=== PATIENT | male | born 1960 | race Caucasian/White ===

== ENCOUNTER → 2017-12-13 03:26 | Outpatient (CLI) | payer OTHER, SELFPAY ==
[2017-12-13 13:08] LABS: Hemoglobin A1C 10.1 % (4.5-6.2)
[2017-12-13 13:22] LABS: TSH (W/Ref FT4) 2.76 uIU/mL (0.358-3.74)
== END ==
PROVIDERS: PCP Family Medicine; Visit Provider Family Medicine
DX: R79.89 Other specified abnormal findings of blood chemistry (principal); E11.65 Type 2 diabetes mellitus with hyperglycemia
CPT/HCPCS: 36415; 83036; 84443

== ENCOUNTER 2018-03-14 02:12 | Outpatient (CLI) | payer OTHER, SELFPAY ==
[2018-03-14 13:42] LABS: Hemoglobin A1C 8.8 % (4.5-6.2)
== END 2018-03-14 02:32 ==
PROVIDERS: PCP Family Medicine; Visit Provider Family Medicine
DX: E11.65 Type 2 diabetes mellitus with hyperglycemia (principal)
CPT/HCPCS: 36415; 83036

== ENCOUNTER 2018-06-02 01:13 | Outpatient (CLI) | payer OTHER, SELFPAY | END 2018-06-02 01:33 | PROVIDERS: PCP Family Medicine; Visit Provider Family Medicine | DX: E11.65 Type 2 diabetes mellitus with hyperglycemia (principal) | CPT/HCPCS: 36415; 83036 ==

== ENCOUNTER 2018-12-01 04:17 | Outpatient (CLI) | payer OTHER, SELFPAY ==
[2018-12-01 13:55] LABS: Hemoglobin A1C 8.1 % (4.5-6.2)
[2018-12-01 14:25] LABS: COMMENT (LAB VIEW ONLY) 57.14 mg/dL; Microalb ug/mg Crea 13.5 ug/mg Cr
== END 2018-12-01 04:37 ==
PROVIDERS: PCP Family Medicine; Visit Provider Family Medicine
DX: E11.65 Type 2 diabetes mellitus with hyperglycemia; E11.9 Type 2 diabetes mellitus without complications
CPT/HCPCS: 36415; 82043; 82570; 83036

== ENCOUNTER 2020-06-03 11:25 | Outpatient (REF) | payer OTHER, SELFPAY ==
[2020-06-03 22:04] LABS: COMMENT (LAB VIEW ONLY) 96.14 mg/dL; Microalb ug/mg Crea 19.2 ug/mg Cr
[2020-06-03 22:29] LABS: CREATININE 1.09 mg/dL (0.70-1.30); Potassium 3.7 mmol/L (3.5-5.1); TSH (W/Ref FT4) 2.48 uIU/mL (0.36-3.74)
== END 2020-06-03 11:45 ==
LOC: LBN 11:25
PROVIDERS: PCP Family Medicine; Visit Provider Family Medicine
DX: E11.9 Type 2 diabetes mellitus without complications (principal); I10 Essential (primary) hypertension; E03.9 Hypothyroidism, unspecified
CPT/HCPCS: 82043; 82565; 82570; 84132; 84443

== ENCOUNTER 2021-05-09 11:44 | Emergency (ER) | payer OTHER, SELFPAY ==
[2021-05-09 11:51] VITALS: BP 141/74; PULSE 89; RESP 16; TEMP 36.8; O2SAT 99
--- NOTE | 2021-05-09 12:15 | ED.GENADUL_ITS ---
Discharge Plan Disposition Patient Disposition: HOME Condition: Stable Discharge Details Clinical Impression: Encounter for laboratory testing for COVID-19 virus Primary Care Provider: Jean-Claude Jaeger ED Provider: Mary Cochran Home Meds and New Rx's Prescriptions: Continued (DME) Blood Glucose Test strip 1 ea Miscellaneous DAILY Qty: 100 RF: 3 losartan 25 mg tablet 25 mg PO DAILY Qty: 90 RF: 3 (DME) blood-glucose meter 1 EACH misc 1 ea Miscellaneous ONCE Qty: 1 RF: 0 (DME) lancets 1 EACH misc 1 ea Miscellaneous DAILY Qty: 100 RF: 4 albuterol sulfate 8.5 GM HFA aerosol inhaler 1 - 2 puff Inhalation Q4H PRN Qty: 1 RF: 0 aspirin 81 MG tablet,chewable 81 mg PO DAILY Qty: 90 RF: 3 Farxiga 10 mg tablet 10 mg PO DAILY Qty: 90 RF: 3 atorvastatin 10 mg tablet 10 mg PO QPM Qty: 90 RF: 3 levothyroxine 100 mcg tablet 100 mcg PO DAILY Qty: 90 RF: 3 (DME) pen needle, diabetic [BD Ultra-Fine Delaney Pen Needle] 32 gauge x 5/32 needle 1 ea Miscellaneous DAILY Qty: 100 RF: 3 Lantus Solostar U-100 Insulin 100 unit/mL (3 mL) insulin pen 60 unit Sub-Q .PM Qty: 36 RF: 3 Discharge Instructions Instructions: COVID-19: Slow the Coronavirus Spread (ED) Additional Instructions: Please continue to quarantine until negative result. Please take vitamins including vitamin C, vitamin D and zinc. Consider getting vaccinated for Covid Follow up with primary care provider in 3-5 days. Return to ED sooner if any worsening or concerns. Increase oral fluids. Please take Tylenol or Ibuprofen with food every 4-6 hours as needed for pain and swelling. Stand Alone Forms: PENDING COVID-19 TESTING, Work Release Discharge Data Discharge Date/Time-TO BE ENTERED AT DEPARTURE: 05/09/21 12:33 Medical Decision Making Send out Covid test obtained by nursing staff. Discussed quarantine procedures and home care with patient who verbalizes understanding. HPI General Mode of arrival: ambulatory . Date/Time Provider Initiated Documentation: 05/09/21 11:51 . Limitations to Documentation: no limitations . Information obtained by: patient and RN notes reviewed . HPI Narrative: Is a 60-year-old male presents to the ER chief complaint of headache, sinus congestion and request for Covid testing. He denies any fever. He does report that he was exposed to 70 on who tested positive for Covid. He has a past medical history of diabetes, GERD, hypothyroidism, hyperlipidemia, depression. Related Data Home Medications Medication Instructions Recorded Confirmed blood-glucose meter #1 ea 07/23/13 01/07/21 lancets #100 ea 07/23/13 01/07/21 albuterol sulfate 1 - 2 puff INHALATION Q4H PRN #1 06/25/14 05/09/21 inhaler aspirin 81 mg PO DAILY #90 tab-cap 06/15/17 05/09/21 blood sugar diagnostic #100 strip 06/06/18 01/07/21 dapagliflozin 10 mg tablet 10 mg PO DAILY #90 tab 05/30/20 05/09/21 losartan 25 mg tablet 25 mg PO DAILY #90 tab 06/03/20 05/09/21 atorvastatin 10 mg tablet 10 mg PO QPM #90 tab 08/20/20 05/09/21 levothyroxine 100 mcg tablet 100 mcg PO DAILY #90 tab-cap 08/20/20 05/09/21 pen needle, diabetic 32 gauge x #100 ea 09/18/20 01/07/21 insulin glargine 100 unit/mL (3 60 unit SUB-Q .PM #36 ml 03/10/21 05/09/21 mL) subcutaneous pen Previous Rx's Medication Instructions Recorded aspirin 81 mg PO DAILY #90 tab-cap 06/15/17 blood sugar diagnostic #100 strip 06/06/18 dapagliflozin 10 mg tablet 10 mg PO DAILY #90 tab 05/30/20 losartan 25 mg tablet 25 mg PO DAILY #90 tab 06/03/20 atorvastatin 10 mg tablet 10 mg PO QPM #90 tab 08/20/20 levothyroxine 100 mcg tablet 100 mcg PO DAILY #90 tab-cap 08/20/20 pen needle, diabetic 32 gauge x #100 ea 09/18/20 insulin glargine 100 unit/mL (3 60 unit SUB-Q .PM #36 ml 03/10/21 mL) subcutaneous pen Allergies Allergy/AdvReac Type Severity Reaction Status Date / Time metformin AdvReac Severe Diarrhea, Verified 05/09/21 11:55 Nausea glipizide AdvReac Unknown Nausea Verified 05/09/21 11:55 lisinopril AdvReac Unknown Verified 05/09/21 11:55 semaglutide [From Rybelsus] AdvReac resp issues Verified 05/09/21 11:55 General Stated Complaint: RespSymp JOHNNY: 3 Review of Systems All systems reviewed & are unremarkable except as noted in HPI and below PFSH All Active Problems (Updated 05/09/21 @ 12:20 by Mary Cochran) Encounter for laboratory testing for COVID-19 virus (Acute) Skin tag (Acute) Sinus congestion (Acute) GERD (gastroesophageal reflux disease) (Chronic) Neuropathy (Acute) likely 2ndary to suboptimal control of DM Diabetes mellitus (Chronic) Status post tonsillectomy (Acute) Well adult (Acute) Tobacco use disorder (Acute) 35 pack years Polyp of colon (Acute) 07/20/13; DR. Rafael BEAR; SESSILE SERRATED ADENOMA Non-alcoholic fatty liver disease (Acute 04/07/05) bx-12/2007 Lumbago (Acute) Hypothyroidism (Acute 10/24/13) Hyperlipidemia (Acute 04/07/05) Gout (Acute) Depressive disorder (Acute) DM w/o complication type II, uncontrolled (Acute 10/30/14) improved sugars (A1c reviewed--8.8) Surgical History Tonsillectomy (~1973) Varicocele Ligation (~1975) LEFT TESTICLE Family History Mother Lung cancer Father Diabetes Alcohol abuse Hyperlipidemia Maternal Grandmother Cancer Son No problems noted. Social History Smoking/Tobacco Use Status: Former Tobacco Use Quit Date: 05/09/14 Tobacco: How many years used: 45 Quit status: has quit before Second Hand Exposure: No Smoking risk assessment performed?: Yes Alcohol Intake: current Alcohol Intake frequency: holidays/special occasions only Alcohol type: hard liquor Drug use: Never Substance use type: does not use Caregiver/Support person: No Household members: spouse Housing: house Communication Needs: None Pets and animals: No Sexually active: Yes Do you think of yourself as: straight/heterosexual Current gender identity: male What is your relationship status?: How often do you get together with friends or relatives?: never How often do you attend adventism or confucianist services?: decline to answer Do you belong to any clubs or organized social groups?: no Panel score (0-1 are the most socially isolated patients): 1 What type of physical activity do you participate in: walking Duration: 15-30 minutes/day Frequency: 3-4 times per week Alla/Restorationism: Roman Catholic Special alla needs: No Seatbelt use: always Helmet use: No Drive intox or ride w/intox local truck driver: No Do you feel safe in your relationship?: Yes Exam Narrative Exam Narrative: Constitutional: Alert and oriented x3. Appears stated age. Normal body habitus. Head: Normocephalic, no trauma. Eyes: Pupils PERRL, Red reflex noted, EOM's intact. Eyelids symmetrical without lesions, discharge, or swelling. ENT: Bilateral TM's WNL, External ear normal to inspection, no mastoid TTP, swelling, or erythema, Nasal turbinates WNL, no nasal discharge. Normal dentition, Posterior pharynx WNL, no exudate. Chest: RRR, Normal S1, S2, distal pulses intact. Resp: Lungs clear to auscultation bilaterally, no wheezes, rales, or rhonchi. Abdomen: Soft, non-distended, Normoactive bowel sounds all 4 quads. Musculoskeletal: Normal gait, 5/5 strength to all four extremities. Skin: No suspicious rashes or lesions. Capillary refill less than 2 sec. Neurologic: Cranial nerves II-XII intact. Alert and oriented x 3. Motor: No deficits noted. Sensory: Intact bilaterally all 4 extremities. Reflexes: DTR's intact bilaterally.. Hematologic/Lymphatic: No ecchymosis, no lymphadenopathy. Course Vital Signs Vital signs: Vital Signs Temperature 36.8 C 05/09/21 11:51 Pulse 89 05/09/21 11:51 Respiratory Rate 16 05/09/21 11:51 Blood Pressure 141/74 H 05/09/21 11:51 Pulse Oximetry 99 05/09/21 11:51 Temperature 36.8 C 05/09/21 11:51 Pulse 89 05/09/21 11:51 Respiratory Rate 16 05/09/21 11:51 Blood Pressure 141/74 H 05/09/21 11:51 Blood Pressure Position Sitting 05/09/21 11:51 Pulse Oximetry 99 05/09/21 11:51 Oxygen Delivery Method Room Air 05/09/21 11:51 Oxygen Flow Rate 0 05/09/21 11:51
[2021-05-09 12:28] VITALS: BP 141/74; PULSE 89; RESP 16; TEMP 36.8; O2SAT 99
[2021-05-11 09:56] LABS: COVID-19 RT-PCR UVMMC Result Negative (Negative)
== END 2021-05-09 12:33 | disposition home or self-care (01) ==
LOC: ER 12:52
PROVIDERS: Emergency Provider Registered Nurse Emergency; PCP Family Medicine
DX: R51.9 Headache, unspecified (principal); R09.81 Nasal congestion; Z20.822 Contact with and (suspected) exposure to COVID-19
CPT/HCPCS: 99281; U0003; 99282

== ENCOUNTER 2021-06-22 01:47 | Outpatient (CLI) | payer OTHER, SELFPAY ==
[2021-06-22 14:47] LABS: CREATININE 0.9 mg/dL (0.70-1.30); Potassium 4.3 mmol/L (3.5-5.1)
== END 2021-06-22 01:48 | disposition home or self-care (01) ==
LOC: LBO 01:47
PROVIDERS: PCP Family Medicine; Visit Provider Family Medicine
DX: I10 Essential (primary) hypertension (principal); R73.09 Other abnormal glucose
CPT/HCPCS: 36415; 82565; 83036; 84132

== ENCOUNTER 2021-09-04 06:11 | Day surgery (SDC) | payer OTHER, SELFPAY ==
--- NOTE | 2021-09-03 12:54 | COLE_ITS ---
Colonoscopy Report Date of procedure: 09/04/21 Pre-op diagnosis general: S. serrated at hepatic flexure in 2012 Post-op diagnosis procedure note: other (fissure [id number]) Surgeon: Yoana Nina Anesthesia Type: General:No Airway Estimated blood loss (mL): 1 Pathology: other Complications: None Disposition: same day Prep: Miralax/Dulcolax Retraction Time: 12 Procedure Description: After informed consent was obtained the patient was taken to the procedure room and placed in a left decubitous position. Monitors were applied and a time out was done. The patients name, date of , procedure, allergies to medications and metal in their body was reviewed. The patient was then sedated. Once sedated and comfortable a rectal exam was done. External exam was normal. Internal exam revealed a normal sphincter tone and no palpable masses. He does have a rectal fissure in the 6 o'clock position. This appears chronic. It does have an associated sentinel pile. The scope was then introduced and retrofelexed. Three column Grade I internal hemorrhoids were identified. The scope was then advanced to the cecum w/out difficulty. The TI and appendiceal orifice were identified. The prep was be BPS 2 in the right colon and be BPS 3 in the other segments for a total of 8. The scope was then slowly retracted over 12 minutes back into the rectum. He had a 0.75 cm polyp removed at 60 cm with a cold biting forcep. He had 0.5 cm flat polyp at 70 and 20 cm. These are both removed with a cold forcep. All specimen is retrieved and no bleeding is noted. All 3 of these polyps were examined under NBI they do appear to be adenomatous and possibly serrated. Ther e are no diverticula noted. The mucosa is pink and healthy with a normal vascular pattern. The scope was removed and the patient was woken up and taken back to Same day surgery in stable condition. The patient tolerated the procedure well and there were no immediate complications. Follow up: The patient should follow up in 3-5 years unless they develop changes in bowel habits or other new gastrointestinal complaints.
--- NOTE | 2021-09-03 12:56 | PDOC.DSDIS_ITS ---
Discharge Plan Disposition Patient Disposition: HOME Condition: Good Discharge Details Reason For Visit: colon scope Attending Provider: Yoana Nina Primary Care Provider: Jean-Claude Jaeger Home Meds and New Rx's Prescriptions: Continued (DME) Blood Glucose Test strip 1 ea Miscellaneous DAILY Qty: 100 3RF Rx Instructions: Lantus for insulin. DX e11.9 test once/day (DME) blood-glucose meter 1 EACH misc 1 ea Miscellaneous ONCE Qty: 1 0RF Rx Instructions: METER TYPE ONE TOUCH ULTRA MINI DIAGNOSIS CODE 250.02 (DME) lancets 1 EACH misc 1 ea Miscellaneous DAILY Qty: 100 4RF Rx Instructions: FOR ONE TOUCH ULTRA MINI METER. NO INSULIN. DIAGNOSIS CODE 250.02 levothyroxine 100 mcg tablet 100 mcg PO DAILY Qty: 90 3RF (DME) pen needle, diabetic [BD Ultra-Fine Delaney Pen Needle] 32 gauge x 5/32 needle 1 ea Miscellaneous DAILY Qty: 100 3RF Rx Instructions: DX E11.9 inject once/day Lantus Solostar U-100 Insulin 100 unit/mL (3 mL) insulin pen 60 unit Sub-Q .PM Qty: 36 3RF Rx Instructions: DX E11.65 losartan 25 mg tablet 25 mg PO DAILY Qty: 90 3RF Farxiga 10 mg tablet 10 mg PO DAILY Qty: 90 3RF atorvastatin 10 mg tablet 10 mg PO QPM Qty: 90 3RF Discontinued bisacodyl [Dulcolax (bisacodyl)] 5 mg tablet,delayed release (DR/EC) 5 mg PO ONCE Qty: 4 0RF Rx Instructions: Take according to provider's instructions for colonoscopy prep. polyethylene glycol 3350 17 gram/dose powder 17 g PO ONCE Qty: 238 0RF Rx Instructions: To be taken as directed by prescriber's office for colonoscopy prep. Discharge Instructions Additional Instructions: DSU Colonoscopy Post- Op Instructions Instructions for Everyone who is given Anesthesia: For your safety, please do the following for the next twenty-four (24) hours: *Do Not operate a motor vehicle (car, truck, motorcycle, etc.) *Do Not drink alcoholic beverages or use any recreational drugs for the first 24 hours or while taking pain medications. The medications in your body may have a reaction that can be dangerous. *Do Not make any important decisions or sign any important papers. Findings:polypsX3 Follow up: My office will send you a letter in 2 to 3 weeks time detailing what types of polyps they were and when we want you to repeat the colonoscopy. 1. No lifting over 20 pounds or strenuous activity for the first 24 hours after your procedure. After 24 hours there are no restrictions on your activity but you may feel fatigued for a few days. 2. After you arrive home you may have a light meal and return to your normal diet as you can tolerate it without feeling sick to your stomach. 3. You may have a bloated, gaseous feeling in your belly (abdomen) after a colonoscopy. Passing gas and belching will help. Walking or lying down on your left side with your knees flexed may relieve the discomfort. -No ASA/NSAID's x72 hrs tylenol is OK. Call the office at [phone] (Office) or [phone] (Hospital) right away if you notice any of the following: a.Vomiting of blood or ?coffee ground stools?. b.Rectal bleeding 1Tbsp, blood clots or continuous bleeding. c.Severe belly (abdominal) pain. d.A hard distended belly (abdomen) and an inability to pass gas. 4. Please don?t expect to have a normal BM (bowel movement) for 2-3 days after your procedure. 5. If there are questions regarding the findings of your procedure, please contact your doctor 6. If you are unable to contact your doctor with a problem, contact the hospital at [phone]. 7. Continue all your regular medications unless directed otherwise. I understand the above instructions and have no questions. Signature of Patient or Adult Escort Name of Responsible Adult Escort Signature of Nurse Date/Time Activity:: See above Diet:: See above Discharge Orders Discharge Orders: Discharge Order (Routine); Ordered 09/03/21 Ordered By: Yoana Nina
[2021-09-04 06:29] VITALS: BP 135/72; PULSE 74; RESP 17; TEMP 36.3; O2SAT 99
[2021-09-04] MEDS: Lactated Ringers 1,000 ML 80 ML IV (06:41)
--- NOTE | 2021-09-04 06:58 | ANES.PREOP_ITS ---
General Info Date of Service Date Performed: 09/04/21 Height: 5 ft 9 in Weight: 77.4 kg Body Mass Index (BMI): 25.2 Surgical Procedure: Operation Date: 09/04/21 07:35 Proposed Procedure Side Surgeon humberto Nina, DO Meds Allergies and Home Medications Allergies Allergy/AdvReac Type Severity Reaction Status Date / Time metformin AdvReac Severe Diarrhea, Verified 09/04/21 06:29 Nausea glipizide AdvReac Unknown Nausea Verified 09/04/21 06:29 lisinopril AdvReac Unknown Verified 09/04/21 06:29 semaglutide [From Rybelsus] AdvReac resp issues Verified 09/04/21 06:29 Home Medication Medication Instructions Recorded blood-glucose meter #1 ea 07/23/13 lancets 28 gauge #100 ea 07/23/13 blood sugar diagnostic (Blood #100 strip 06/06/18 Glucose Test) levothyroxine 100 mcg tablet 100 mcg PO DAILY #90 tab-cap 08/20/20 pen needle, diabetic 32 gauge x #100 ea 09/18/20 (BD Ultra-Fine Delaney Pen Needle) insulin glargine 100 unit/mL (3 60 unit (0.6 mL) SUB-Q .PM #36 ml 03/10/21 mL) subcutaneous pen (Lantus Solostar U-100 Insulin) losartan 25 mg tablet 25 mg PO DAILY #90 tab 07/14/21 atorvastatin 10 mg tablet 10 mg PO QPM #90 tab 08/24/21 dapagliflozin 10 mg tablet 10 mg PO DAILY #90 tab 08/24/21 (Farximo) Current Visit Medications: Current Medications Generic Name Dose Route Start Last Admin Trade Name Freq PRN Reason Stop Dose Admin Hyoscyamine Sulfate 0.125 mg 09/04/21 06:00 Hyoscyamine 0.125 Mg Sl/Oral/Chew SL 09/04/21 16:00 DIRECTED PRN Ringer's Solution 1,000 mls @ 80 mls/hr 09/04/21 06:00 09/04/21 06:41 IV 09/05/21 23:59 80 mls/hr INFUSION JU Administration IV Miscellaneous Supplies 1 each 09/04/21 06:00 Iv Access IV 09/05/21 23:59 DIRECTED JU Ondansetron HCl 4 mg 09/04/21 06:00 Ondansetron 4 Mg/2 Ml Vial IVP 09/04/21 16:00 Q4H PRN PRN Nausea / Vomiting Sodium Chloride 0 ml 09/04/21 06:00 Normal Saline Flush 10 Ml Syr IV 09/05/21 23:59 PRN PRN Sodium Chloride 0 ml 09/04/21 06:00 Normal Saline 10 Ml Vial IJ 09/05/21 23:59 DIRECTED PRN Sterile Water 0 ml 09/04/21 06:00 Water,Injection,Sterile 10 Ml Vial IJ 09/05/21 23:59 DIRECTED PRN PFSH Active Problems Active Problems: Problem Status Onset Code Screening for colon cancer Z12.11 Diabetes mellitus E11.9 Neuropathy G62.9 GERD (gastroesophageal reflux disease) K21.9 Polyp of colon K63.5 Medical History Medical History Depressive disorder DM w/o complication type II, uncontrolled (10/30/14) improved sugars (A1c reviewed--8.8) Encounter for laboratory testing for COVID-19 virus Gout Hyperlipidemia (04/07/05) Hypothyroidism (10/24/13) Lumbago Non-alcoholic fatty liver disease (04/07/05) bx-12/2007 Sinusitis Skin tag Tobacco use disorder 35 pack years Well adult Surgical History Surgical History Status post tonsillectomy Tonsillectomy (~1973) Varicocele Ligation (~1975) LEFT TESTICLE Tobacco Smoking/Tobacco Use Status: Former Tobacco Use Passive smoking exposure: No Second hand exposure: No Alcohol Alcohol Intake: current Alcohol intake frequency: holidays/special occasions only Alcohol type: hard liquor Substance Use Substance use: Never Substance use type: does not use Vital Signs and Lab Results Vital Signs Most Recent Vital Signs in EMR: Most Recent Vital Signs Temp Pulse Resp BP Pulse Ox 36.3 C L 74 17 135/72 99 09/04/21 06:29 09/04/21 06:29 09/04/21 06:29 09/04/21 06:29 09/04/21 06:29 Point of Care Results Point of Care Results: Finger Stick Blood Glucose 143 09/04/21 06:20 Lab Results Blood Type / Crossmatch: No Data to Display Complete Blood Count: No Data to Display Complete Metabolic Panel: No Data to Display Liver Function Panel: No Data to Display Coagulation Panel: No Data to Display Cardiac Panel: No Data to Display Arterial Blood Gas: 2 No Data to Display Venous Blood Gas: No Data to Display Pancreas Panel: No Data to Display Thyroid Panel: No Data to Display Infectious Disease: No Data to Display Blood Cultures: No Data to Display Toxicology Panel: No Data to Display Anesthesia Assessment and Plan Anesthesia History Personal History: No History of Anesthesia Complications Family History: No Family History of Anesthesia Complications Exercise Tolerance Exercise Tolerance: Metabolic Equivalents>4 Pertinent Negatives Pertinent Negatives: No Symptoms of GERD (Well controlled w med) Cardiac & Pulmonary Exam Cardiac Exam: Normal S1/S2 Heart Sounds Pulmonary Exam: Clear Bilateral Breath Sounds Implantable Cardiac Device Does patient have a Pacemaker or an ICD?: No Airway Exam Known Difficult Airway: No Mallampati Class: 3 Mouth Opening: Normal (> 3cm) Thyromental Distance: Greater than 3 cm Neck Range of Motion: Full ROM Neck Circumference: Normal Teeth Condition: Normal Dentition ASA Classification ASA Score: ASA 2 Emergency Case?: No NPO Status NPO Status: NPO Clears >2 hours, Solids >8 hours Anesthesia Plan Resuscitation Status: Full Code Anesthesia Technique: General Anesthesia Airway Planned: Natural Airway Monitors Used: Standard Monitors
[2021-09-04 07:08] VITALS: BMI 25.2
--- NOTE | 2021-09-04 07:47 | BOWEL_PTH ---
PATIENT: Brett Reid JR LOC: [facility] U#:[id number] AGE/SX: 60/M ROOM: RE09/04/[address]: Yoana Nina : 1960 BED: DIS: 09/04/2021 SPEC #: [id number] RECD: 09/04/21 12:39 STATUS: MAURICIO REQ #: [id number] SAWYER: 09/04/21 07:[address]: Yoana Nina DEPT: Surgical Specimen RECD BY: Jess Cohn ENTERED: 09/04/21 12:40 SP TYPE: Bowel OTHR DR: Jean-Claude Jaeger MD Tissues: 1 - BIOPSY BOWEL 2 - BIOPSY BOWEL 3 - BIOPSY BOWEL Procedures: GROSS AND MICRO LEVEL 4 Comments: [id number]
[2021-09-04 08:21] VITALS: BP 119/74; PULSE 74; RESP 16; TEMP 36.6; O2SAT 98
--- NOTE | 2021-09-04 08:26 | W.ANESPOSTOP ---
Postoperative Evaluation Date, Time and Location Date Performed: 09/04/21 Time Performed: 08:27 Patient Location: Day Surgery Unit Vital Signs Most Recent Imported Vital Signs: Most Recent Vital Signs Temp Pulse Resp BP Pulse Ox 36.6 C 74 16 119/74 98 09/04/21 08:21 09/04/21 08:21 09/04/21 08:21 09/04/21 08:21 09/04/21 08:21 Pain Score Most Recent Pain Score: Most Recent Pain Score Pain Level 0 09/04/21 08:21 Assessment Mental Status: Arousable with meaningful communication Airway and Respiratory Function: Patent airway with normal (patient baseline) respiratory exam Cardiovascular Function: Hemodynamically Stable Hydration Status: Adequately Hydrated Nausea & Vomiting: No Nausea or Vomiting Pain: Pt. Denies Any Pain Peripheral Nerve Block: Patient did not receive a nerve block
[2021-09-04 08:37] VITALS: BP 132/78; PULSE 76; RESP 18; TEMP 36.4; O2SAT 99
== END 2021-09-04 09:10 | disposition home or self-care (01) ==
LOC: SUR 06:12
PROVIDERS: PCP Family Medicine; Visit Provider Surgery
PROC: 0DJD8ZZ Inspection of Lower Intestinal Tract, Via Natural or Artificial Opening Endoscopic (ICD-10-PCS; CPT 45378; principal; 2021-09-04 07:30)
DX: Z12.11 Encounter for screening for malignant neoplasm of colon (principal); K63.5 Polyp of colon; K64.0 First degree hemorrhoids; E11.9 Type 2 diabetes mellitus without complications; Z79.4 Long term (current) use of insulin; E11.65 Type 2 diabetes mellitus with hyperglycemia; F17.210 Nicotine dependence, cigarettes, uncomplicated; K60.1 Chronic anal fissure; K63.89 Other specified diseases of intestine
CPT/HCPCS: 45380; 88305

== ENCOUNTER 2022-01-13 11:55 | Outpatient (CLI) | payer OTHER, SELFPAY ==
[2022-01-13 12:49] LABS: Abs Immature Grans 0.06 10^3/uL (0.0-0.06); Absolute Basophil Count 0.07 10^3/uL (0.0-0.2); Absolute Eosinophil Count 0.36 10^3/uL (0.0-0.7); Absolute Lymphocyte Count 2.39 10^3/uL (1.2-3.4); Absolute Monocyte Count 0.75 10^3/uL (0.1-0.8); Absolute Neutrophil Count 6.78 10^3/uL (1.2-6.7); Basophils % 0.7; Eosinophils % 3.5; HCT 47.5 % (40.0-50.0); HGB 16.2 g/dL (13.5-17.5); Immature Grans % 0.6; MCH 31.4 pg (27.0-33.0); MCHC 34.1 % (32.0-36.0); MCV 92 fL (80-95); MPV 9.9 fL (8.0-11.0); Monocytes % 7.2; Platelet Count 210 10^3/uL (130-400); RBC 5.16 10^6/uL (4.36-5.78); RDW 13.2 % (11.8-14.1); RDW-SD 44.9 fL; WBC 10.41 10^3/uL (4.4-10.8)
[2022-01-13 13:04] LABS: ALT 39 U/L (16-63); AST 28 U/L (15-37); Albumin 4.2 g/dL (3.4-5.0); Alkaline Phosphatase 95 U/L (46-116); Anion Gap 8.2 mmol/L (3-11); BUN 14 mg/dL (7-18); Bilirubin, Total 0.8 mg/dL (0.2-1.0); CO2 29.8 mmol/L (21.0-32.0); CREATININE 1.4 mg/dL (0.70-1.30); Calcium 9.8 mg/dL (8.5-10.1); Chloride 101 mmol/L (98-107); Estimated GFR 56.83 (mL/min/1.73m2); Glucose 286 mg/dL (74-106); Potassium 4.4 mmol/L (3.5-5.1); Sodium 139 mmol/L (136-145); Total Protein 8.3 g/dL (6.4-8.2)
== END 2022-01-13 11:56 | disposition home or self-care (01) ==
LOC: LOS 11:55
PROVIDERS: PCP Family Medicine; Referring Provider Family Medicine; Visit Provider Family Medicine
DX: D64.9 Anemia, unspecified (principal); R10.9 Unspecified abdominal pain
CPT/HCPCS: 36415; 80053; 85025

== ENCOUNTER 2022-01-13 12:42 | Outpatient (REF) | payer OTHER, SELFPAY ==
[2022-01-13 22:43] LABS: Albumin ug/mg Crea 33 (<30); Albumin, Ur 2.3 mg/dL (See Note); Creatinine, Ur 69.4 mg/dL (See Note)
== END 2022-01-13 12:43 | disposition home or self-care (01) ==
LOC: LBN 12:42
PROVIDERS: PCP Family Medicine; Visit Provider Family Medicine
DX: E11.9 Type 2 diabetes mellitus without complications (principal)
CPT/HCPCS: 82043; 82570

== ENCOUNTER 2022-08-12 03:25 | Outpatient (CLI) | payer OTHER, SELFPAY ==
[2022-08-12 14:28] LABS: FREE T4 0.89 ng/dL (0.76-1.46)
== END 2022-08-12 03:26 | disposition home or self-care (01) ==
LOC: LBO 03:26
PROVIDERS: PCP Family Medicine; Visit Provider Family Medicine
DX: E03.9 Hypothyroidism, unspecified (principal)
CPT/HCPCS: 36415; 84439; 84443

== ENCOUNTER 2023-02-09 21:08 | Outpatient (REF) | payer OTHER, SELFPAY ==
[2023-02-09 22:07] LABS: COMMENT (LAB VIEW ONLY) 49.16 mg/dL; Microalb ug/mg Crea 47.8 ug/mg Cr
== END 2023-02-09 21:09 | disposition home or self-care (01) ==
LOC: LBN 21:08
PROVIDERS: PCP Family Medicine; Visit Provider Family Medicine
DX: E11.9 Type 2 diabetes mellitus without complications (principal)
CPT/HCPCS: 82043; 82570

== ENCOUNTER 2023-05-06 03:40 | Outpatient (CLI) | payer OTHER, SELFPAY ==
[2023-05-06 12:21] LABS: CREATININE 1.1 mg/dL (0.70-1.30); Estimated GFR 75.43 (mL/min/1.73m2); Potassium 3.2 mmol/L (3.5-5.1)
[2023-05-06 20:33] LABS: PSA, Screening 0.6 ng/mL (<=4.5)
== END 2023-05-06 03:41 | disposition home or self-care (01) ==
PROVIDERS: PCP Family Medicine; Visit Provider Family Medicine
DX: I10 Essential (primary) hypertension (principal); Z12.5 Encounter for screening for malignant neoplasm of prostate
CPT/HCPCS: 36415; 84153; 82565; 84132

== ENCOUNTER 2023-09-19 04:52 | Outpatient (CLI) | payer OTHER, SELFPAY ==
[2023-09-19 12:21] LABS: Abs Immature Grans 0.04 10^3/uL (0.0-0.06); Absolute Basophil Count 0.07 10^3/uL (0.0-0.2); Absolute Eosinophil Count 0.35 10^3/uL (0.0-0.7); Absolute Lymphocyte Count 2.25 10^3/uL (1.2-3.4); Absolute Monocyte Count 0.65 10^3/uL (0.1-0.8); Absolute Neutrophil Count 5.45 10^3/uL (1.2-6.7); Basophils % 0.8 %; HCT 44.9 % (40.0-50.0); HGB 15.3 g/dL (13.5-17.5); Immature Grans % 0.5 %; Lymphocytes % 25.5 %; MCH 31.4 pg (27.0-33.0); MCHC 34.1 % (32.0-36.0); MCV 92 fL (80-95); MPV 9.9 fL (8.0-11.0); Monocytes % 7.4 %; Neutrophils % 61.8 %; Platelet Count 238 10^3/uL (130-400); RBC 4.88 10^6/uL (4.36-5.78); RDW 12.7 % (11.8-14.1); RDW-SD 43.5 fL; WBC 8.81 10^3/uL (4.4-10.8)
[2023-09-19 13:05] LABS: ALT 28 U/L (16-63); AST 15 U/L (15-37); Albumin 3.8 g/dL (3.4-5.0); Alkaline Phosphatase 97 U/L (46-116); Anion Gap 11.7 mmol/L (3-11); BUN 15 mg/dL (7-18); Bilirubin, Total 0.6 mg/dL (0.2-1.0); CO2 25.3 mmol/L (21.0-32.0); CREATININE 1.1 mg/dL (0.70-1.30); Calcium 8.9 mg/dL (8.5-10.1); Chloride 101 mmol/L (98-107); Cholesterol 184 mg/dL (<200); Estimated GFR 75.43 (mL/min/1.73m2); Glucose 270 mg/dL (74-106); HDL Cholesterol 37 mg/dL (40-60); Sodium 138 mmol/L (136-145); TSH (W/Ref FT4) 7.04 uIU/mL (0.36-3.74); Total Protein 7.6 g/dL (6.4-8.2); Triglyceride 700 mg/dL (<150)
[2023-09-19 13:15] LABS: LDL CHOLESTEROL 47 mg/dL (<100)
[2023-09-19 13:45] LABS: Creatine Kinase 83 U/L (39-308); FREE T4 0.94 ng/dL (0.76-1.46)
== END 2023-09-19 04:53 | disposition home or self-care (01) ==
LOC: LOS 04:52
PROVIDERS: PCP Family Medicine; Visit Provider Family Medicine
DX: D64.9 Anemia, unspecified (principal); E78.5 Hyperlipidemia, unspecified; E03.9 Hypothyroidism, unspecified; R10.9 Unspecified abdominal pain; G72.89 Other specified myopathies
CPT/HCPCS: 36415; 80053; 80061; 82550; 83721; 84439; 84443; 85025

== ENCOUNTER 2024-02-21 14:24 | Outpatient (REF) | payer OTHER, SELFPAY ==
[2024-02-21 21:57] LABS: Microalb ug/mg Crea 59.9 ug/mg Cr
== END 2024-02-21 14:25 | disposition home or self-care (01) ==
LOC: LBN 14:24
PROVIDERS: PCP Family Medicine; Visit Provider Family Medicine
DX: E11.9 Type 2 diabetes mellitus without complications (principal); E03.9 Hypothyroidism, unspecified; Z00.00 Encounter for general adult medical examination without abnormal findings
CPT/HCPCS: 82043; 82570